=== PATIENT | male | born 1975 | race Caucasian/White ===

== ENCOUNTER 2022-04-05 14:41 | Inpatient (IN) | payer OTHER, SELFPAY ==
[2022-04-05] VITALS (8 sets, daily range): BP systolic 112–128; BP diastolic 71–82; PULSE 90–119; RESP 16–20; TEMP 36.6–38.1; O2SAT 95–100; BMI 26.6
--- NOTE | 2022-04-05 15:00 | DI.CT_ITS ---
Exam(s) CT ABDOMEN PELVIS W EXAM: CT ABDOMEN PELVIS W CLINICAL HISTORY: RLQ abd Pain, Fever, RUQ abd pain, TECHNIQUE: Imaging Protocol: Axial computed tomography images with coronal and sagittal reformatted images were created and reviewed CONTRAST MATERIAL: Intravenous: Omnipaque 350 Contrast volume:100 mL Oral: No COMPARISON: No exams were available for comparison FINDINGS: ABDOMEN: Lung Bases: Normal where visualized. Liver: Normal density. No measurable mass. Portal, Superior Mesenteric, and Splenic Veins: Unremarkable. Gallbladder and Biliary Tract: No radiodense calculus or dilation. Pancreas: Normal density, no abnormal calcifications or inflammatory process. Spleen: Normal. Adrenals: No masses seen. Kidneys: Normal size, contour and axis. No radiodense stones or obstructive uropathy. No masses seen. Abdominal Aorta: Abdominal portion non-dilated. Bowel: No evidence of obstruction. The appendix is distended measuring 1.5 cm in diameter. Appendic oliths are present. Judy appendiceal inflammatory changes are present in addition to enhancement of the wall. The findings are consistent with an acute appendicitis. No abscess or free air is seen. Peritoneal Cavity: There is a trace amount of fluid in the right cul-de-sac. No free air. Lymph Nodes: Within normal limits. Bones: Within normal limits for the patient's age. Soft Tissues: There is a fat containing left inguinal hernia. PELVIS: Bladder: Symmetric distention, no gross wall thickening. Reproductive Organs: Unremarkable as visualized. Lymph Nodes: Within normal limits. Bones: Within normal limits for the patient's age. IMPRESSION: 1. Acute appendicitis with appendicoliths. No abscess or free air. 2. Findings were discussed with Nicolás Guy at 4:30 p.m. on 04/05/2022. RADIATION DOSE DELIVERED: 874.73mGy.cm Total DLP DATA REPOSITORY: All CT scans at this facility are submitted to the National Radiology Data Registry (NRDR) Dose Index Registry (DIR) with the [employer] (A[employer]). RADIATION OPTIMIZATION: All CT scans at this facility use at least one of these dose optimization te chniques: automated exposure control; mA and/or kV adjustment per patient size (includes targeted exa ms where dose is matched to clinical indication); or iterative reconstruction.
[2022-04-05] MEDS: Normal Saline 1,000 ML 1000 ML IV (15:15)
--- NOTE | 2022-04-05 15:18 | ED.GENADUL_ITS ---
Discharge Plan Disposition Patient Disposition: Admit to [facility] Condition: Stable Discharge Details Clinical Impression: Appendicitis Primary Care Provider: None,None ED Provider: Nicolás Guy Home Meds and New Rx's Prescriptions: No Action calcium carbonate [Tums 500] 500 mg calcium (1,250 mg) Tablet,Chewable 500 mg PO PRN PRN loratadine [Claritin] 10 mg Tablet 10 mg PO PRN PRN Medical Decision Making <Arlin Mckee NP - Last Filed: 04/05/22 15:48> 46-year-old male presents to the ER accompanied by female caregiver with a chief complaint of right lower quadrant abdominal pain since yesterday. He also endorses fever of 100 this morning nausea vomiting no diarrhea. He reports that the pain does radiate to his right flank and now has settled in the right lower quadrant. Work-up CBC CMP urinalysis, lower suspicion for possible appendicitis. Liter normal saline ordered Zofran and morphine. Reviewed diagnosis includes but not limited to cholecystitis, gastroenteritis, kidney stone, small bowel obstruction. Care is to be handed off to oncoming provider SAM Reeves pending remaind er of labs and CT pelvis. I did discuss patient details with him. At the time of this dictation patient is hemodynamically stable. CBC does show leukocytosis white blood cell count 19.6, left shift absolute neutrophils 16.02. <SAM Pham - Last Filed: 04/05/22 17:08> 46-year-old male presents to the ER accompanied by female caregiver with a chief complaint of right lower quadrant abdominal pain since yesterday. He also endorses fever of 100 this morning nausea vomiting no diarrhea. He reports that the pain does radiate to his right flank and now has settled in the right lower quadrant. Work-up CBC CMP urinalysis, lower suspicion for possible appendicitis. Liter normal saline ordered Zofran and morphine. Reviewed diagnosis includes but not limited to cholecystitis, gastroenteritis, kidney stone, small bowel obstruction. Care is to be handed off to oncoming provider SAM Reeves pending remainder of labs and CT pelvis. I did discuss patient details with him. At the time of this dictation patient is hemodynamically stable. CBC does show leukocytosis white blood cell count 19.6, left shift absolute neutrophils 16.02. 1530: Nicolás Guy PA-C I assumed care of this 46-year-old gentleman from my colleague LEGAL BILLING SPECIALIST Rylee, please see her initial HPI and examination. CT imaging reveals acute appendicitis, no abscess or free air. Discussed CT findings with patient and significant other. Will obtain COVID swab, provide IV Zosyn, morphine, and placed a call to our surgical team. Case was discussed with surgery, Dr. Murcia, at approximately 1635. I received a call back at approximately [address] Howell, surgery, who came environmental inspector at 1700. He plans to bring the patient to the OR tonight between 1800- 1830, request that the OR team be called in. This documentation was generated using [employer] system, please disregard any oddities of phrase or misspellings. Imaging Data Radiologic Study: Attestation: I personally reviewed and interpreted this imaging study as follows: Imaging: CT Scan Radiologist's impression: Exam(s) CT ABDOMEN PELVIS W EXAM: CT ABDOMEN PELVIS W CLINICAL HISTORY: RLQ abd Pain, Fever, RUQ abd pain, TECHNIQUE: Imaging Protocol: Axial computed tomography images with coronal and sagittal reformatted images were created and reviewed CONTRAST MATERIAL: Intravenous: Omnipaque 350 Contrast volume:100 mL Oral: No COMPARISON: No exams were available for comparison FINDINGS: ABDOMEN: Lung Bases: Normal where visualized. Liver: Normal density. No measurable mass. Portal, Superior Mesenteric, and Splenic Veins: Unremarkable. Gallbladder and Biliary Tract: No radiodense calculus or dilation. Pancreas: Normal density, no abnormal calcifications or inflammatory process. Spleen: Normal. Adrenals: No masses seen. Kidneys: Normal size, contour and axis. No radiodense stones or obstructive uropathy. No masses seen. Abdominal Aorta: Abdominal portion non-dilated. Bowel: No evidence of obstruction. The appendix is distended measuring 1.5 cm in diameter. Appendicoliths are present. Judy appendiceal inflammatory changes are present in addition to enhancement of the wall. The findings are consistent with an acute appendicitis. No abscess or free air is seen. Peritoneal Cavity: There is a trace amount of fluid in the right cul-de-sac. No free air. Lymph Nodes: Within normal limits. Bones: Within normal limits for the patient's age. Soft Tissues: There is a fat containing left inguinal hernia. PELVIS: Bladder: Symmetric distention, no gross wall thickening. Reproductive Organs: Unremarkable as visualized. Lymph Nodes: Within normal limits. Bones: Within normal limits for the patient's age. IMPRESSION: 1. Acute appendicitis with appendicoliths. No abscess or free air. 2. Findings were discussed with Nicolás Guy at 4:30 p.m. on 04/05/2022. Lab Data Lab results reviewed: Yes I reviewed the patient's lab results. Labs: Laboratory Tests Range/Units 04/05/22 04/05/22 04/05/22 15:00 15:00 16:07 WBC (4.4-10.8) 10^3/uL 19.26 H RBC (4.36-5.78) 10^6/uL 5.82 H Hgb (13.5-17.5) g/dL 16.0 Hct (40.0-50.0) % 48.0 MCV (80-95) fL 83 MCH (27.0-33.0) pg 27.5 MCHC (32.0-36.0) % 33.3 RDW (11.8-14.1) % 11.9 Plt Count (130-400) 10^3/uL 200 MPV (8.0-11.0) fL 11.0 Immature Gran % 0.4 Neutrophils % 83.2 Lymphocytes % 8.9 Monocytes % 7.1 Eosinophils % 0.1 Basophils % 0.3 Nucleated RBC % (0.0-0.3) % 0.0 Absolute Neutrophils (1.2-6.7) 10^3/uL 16.02 H Absolute Lymphocytes (1.2-3.4) 10^3/uL 1.71 Absolute Monocytes (0.1-0.8) 10^3/uL 1.37 H Absolute Eosinophils (0.0-0.7) 10^3/uL 0.02 Absolute Basophils (0.0-0.2) 10^3/uL 0.06 Sodium (136-145) mmol/L 136 Potassium (3.5-5.1) mmol/L 3.5 Chloride (98-107) mmol/L 102 Carbon Dioxide (21.0-32.0) mmol/L 24.1 Anion Gap (3-11) mmol/L 9.9 BUN (7-18) mg/dL 13 Creatinine (0.70-1.30) mg/dL 1.3 Est GFR (CKD-EPI 2020) (mL/min/1.73m2) 69.47 Glucose (74-106) mg/dL 129 H Calcium (8.5-10.1) mg/dL 9.1 Magnesium (1.8-2.4) mg/dL 1.9 Total Bilirubin (0.2-1.0) mg/dL 1.6 H AST (15-37) U/L 18 ALT (16-63) U/L 32 Alkaline Phosphatase (46-116) U/L 79 Total Protein (6.4-8.2) g/dL 8.2 Albumin (3.4-5.0) g/dL 4.2 Lipase (73-393) U/L 73 Urine Color (Yellow) Yellow Urine Clarity (Clear) Clear Urine pH (5-8) 7.0 Ur Specific [place] (1.005-1.025) 1.010 Urine Protein (Negative) mg/dL Negative Urine Ketones (Negative) mg/dL Negative Urine Blood (Negative) Trace-intact H Urine Nitrite (Negative) Negative Urine Bilirubin (Negative) Negative Urine Urobilinogen (Up TO 0.2) EU/dL 0.2 Ur Leukocyte Esterase (Negative) Negative Urine RBC (0-2) HPF 0-2 Urine WBC (0-5) HPF 0-2 Ur Epithelial Cells (Negative) HPF Few Urine Crystals (Negative) HPF Negative Urine Bacteria (Negative) HPF Negative Urine Casts (Negative) LPF Negative Urine Mucus (Negative) Negative Ur Culture Indicated? No Urine Glucose (Negative) mg/dL Negative HPI <Arlin Mckee NP - Last Filed: 04/05/22 15:48> General Mode of arrival: ambulatory . Date/Time Provider Initiated Documentation: 04/05/22 14:54 . Limitations to Documentation: no limitations . Information obtained by: patient, family, RN notes reviewed and old records reviewed . HPI Narrative: 46-year-old male presents to the ER accompanied by female caregiver with a chief complaint of right lower quadrant abdominal pain since yesterday. He also endorses fever of 100 this morning nausea vomiting no diarrhea. He reports that the pain does radiate to his right flank and now has settled in the right lower quadrant. He is alert and oriented no significant past surgical history or medical history. He has no allergies to medications. He did not take any medication prior to arrival. He has been taking Advil as needed for the pain. He denies smoking denies any illicit drugs or alcohol. Related Data Home Medications Medication Instructions Recorded Confirmed calcium carbonate 500 mg calcium 500 mg PO PRN PRN 04/05/22 04/05/22 (1,250 mg) chewable tablet loratadine 10 mg tablet (Claritin) 10 mg PO PRN PRN 04/05/22 04/05/22 Allergies Allergy/AdvReac Type Severity Reaction Status Date / Time No Known Drug Allergies Allergy Unverified 04/05/22 14:50 General Stated Complaint: Abd Prob CELIA: 3 Review of Systems <Arlin Mckee NP - Last Filed: 04/05/22 15:48> All systems reviewed & are unremarkable except as noted in HPI and below Constitutional Constitutional: Reports as per HPI and Reports fever(s) Cardiovascular Cardiovascular: Denies dyspnea Respiratory Respiratory: Denies dyspnea Gastrointestinal Gastrointestinal: Reports as per HPI, Reports abdominal pain, Denies diarrhea, Reports nausea and Reports vomiting PFSH <Arlin Mckee NP - Last Filed: 04/05/22 15:48> All Active Problems (Updated 04/05/22 @ 16:37 by SAM Pham) Appendicitis (Acute) Social History Smoking/Tobacco Use Status: Never Smoking risk assessment performed?: Yes Drug use: Occasionally Substance use type: marijuana Do you feel safe at home: Yes Exam <Arlin Mckee NP - Last Filed: 04/05/22 15:48> Narrative Exam Narrative: Constitutional: Alert and oriented x3. Appears stated age. Normal body habitus. Head: Normocephalic, no trauma. Eyes: Pupils PERRL, Red reflex noted, EOM's intact. Eyelids symmetrical without lesions, discharge, or swelling. ENT: Bilateral TM's WNL, External ear normal to inspection, no mastoid TTP, swelling, or erythema, Nasal turbinates WNL, no nasal discharge. Normal dentition, Posterior pharynx WNL, no exudate. Chest: RRR, Normal S1, S2, distal pulses intact. Resp: Lungs clear to auscultation bilaterally, no wheezes, rales, or rhonchi. Abdomen: Soft, non-distended, Hypoactive bowel sounds all 4 quads. Positive, moderate tenderness with palpation right upper quadrant and right lower quadrant. Increased pain with movement.No CVA tenderness. Musculoskeletal: Normal gait, 5/5 strength to all four extremities. Skin: No suspicious rashes or lesions. Capillary refill less than 2 sec. Neurologic: Cranial nerves II-XII intact. Alert and oriented x 3. Motor: No deficits noted. Sensory: Intact bilaterally all 4 extremities. Hematologic/Lymphatic: No ecchymosis, no lymphadenopathy. Course <Arlin Mckee NP - Last Filed: 04/05/22 15:48> Vital Signs Vital signs: Vital Signs Temperature 37.0 C 04/05/22 14:47 Pulse 119 H 04/05/22 14:47 Respiratory Rate 16 04/05/22 14:47 Blood Pressure 117/82 04/05/22 14:47 Pulse Oximetry 97 04/05/22 14:47 Temperature 37.0 C 04/05/22 14:47 Temperature Source Temporal Artery Scan 04/05/22 14:47 Pulse 119 H 04/05/22 14:47 Respiratory Rate 16 04/05/22 14:47 Respiratory Effort 04/05/22 15:09 Blood Pressure 117/82 04/05/22 14:47 Pulse Oximetry 97 04/05/22 14:47 Oxygen Delivery Method Room Air 04/05/22 14:47 Oxygen Flow Rate 0 04/05/22 14:47 Pain Level 6 04/05/22 14:47 Sign Out <Arlin Mckee NP - Last Filed: 04/05/22 15:48> Sign Out Data: Sign Out Comment: 46-year-old male quadrant abdominal pain associated with fever nausea vomiting which began yesterday. Positive guarding. I do suspect appendicitis. CT abdomen pelvis labs are pending at this time. Zofran and norah santillan ordered. Last updated by Arlin Mckee NP at 04/05/22 15:35 PAWSS <Arlin Mckee NP - Last Filed: 04/05/22 15:48> Have you Been Recently Intoxicated or Drunk Within the Last 30 days?: Yes Have you Ever Experienced Previous Episodes of Alcohol Withdrawal?: No Have you ever Experienced Withdrawal Seizures?: No Have you ever Experienced Delirium Tremens(DT)s?: No Have you ever undergone Alcohol Rehabilitation Treatment (i.e, inpt ot outpatient treatment programs)?: No Have you ever Experienced Blackouts?: No Have you ever Combined Alcohol with other Downers within the last 90 days?: No Have you ever Combined Alcohol with any other Substance of Abuse during the last 90 days?: No Positive Blood Alcohol level on Presentation? [PCS.BAL]: No Evidence of Increased Autonomic Activity (i.e. HR>120, tremor, sweating, agitation, nausea)?: No Result: 1 <SAM Pham - Last Filed: 04/05/22 17:08> Result: 1
[2022-04-05 15:23] LABS: Abs Immature Grans 0.07 10^3/uL (0.0-0.06); Absolute Eosinophil Count 0.02 10^3/uL (0.0-0.7); Absolute Lymphocyte Count 1.71 10^3/uL (1.2-3.4); Absolute Monocyte Count 1.37 10^3/uL (0.1-0.8); Basophils % 0.3; Eosinophils % 0.1; Immature Grans % 0.4; Lymphocytes % 8.9; MCH 27.5 pg (27.0-33.0); MCHC 33.3 % (32.0-36.0); MCV 83 fL (80-95); Monocytes % 7.1; Neutrophils % 83.2; Platelet Count 200 10^3/uL (130-400); RBC 5.82 10^6/uL (4.36-5.78); RDW 11.9 % (11.8-14.1); RDW-SD 35.7 fL; WBC 19.26 10^3/uL (4.4-10.8)
[2022-04-05 15:24] LABS: Absolute Basophil Count 0.06 10^3/uL (0.0-0.2); Absolute Neutrophil Count 16.02 10^3/uL (1.2-6.7)
[2022-04-05] MEDS: Ondansetron 4 MG/2 ML VIAL IVP (15:31)
[2022-04-05] MEDS: MORPHine 4 MG/ML SYR IVP (15:31)
[2022-04-05 15:44] LABS: ALT 32 U/L (16-63); AST 18 U/L (15-37); Albumin 4.2 g/dL (3.4-5.0); Alkaline Phosphatase 79 U/L (46-116); Anion Gap 9.9 mmol/L (3-11); BUN 13 mg/dL (7-18); Bilirubin, Total 1.6 mg/dL (0.2-1.0); CO2 24.1 mmol/L (21.0-32.0); CREATININE 1.3 mg/dL (0.70-1.30); Calcium 9.1 mg/dL (8.5-10.1); Chloride 102 mmol/L (98-107); Estimated GFR 69.47 (mL/min/1.73m2); Glucose 129 mg/dL (74-106); Lipase 73 U/L (73-393); Magnesium 1.9 mg/dL (1.8-2.4); Potassium 3.5 mmol/L (3.5-5.1); Sodium 136 mmol/L (136-145); Total Protein 8.2 g/dL (6.4-8.2)
[2022-04-05] MEDS: Normal Saline - Diluent 50 ML VIAL IJ (16:00)
[2022-04-05] MEDS: Normal Saline Flush 10 ML SYR IVP (16:04)
[2022-04-05] MEDS: Omnipaque 350 MG/ML 100 ML BTL IJ (16:04)
[2022-04-05 16:21] LABS: Bilirubin Negative (Negative); Blood Trace-intact (Negative); Clarity Clear (Clear); Glucose Negative (Negative); Ketones Negative (Negative); Leukocyte Esterase Negative (Negative); Nitrite Negative (Negative); Urobilinogen 0.2 EU/dL (Up TO 0.2)
[2022-04-05 16:32] LABS: Bacteria Negative HPF (Negative); C & S Indicated? No; Casts Negative LPF (Negative); Crystals Negative HPF (Negative); Epithelial Cells Few HPF (Negative); Mucus Negative (Negative); RBC 0-2 HPF (0-2); WBC 0-2 HPF (0-5)
[2022-04-05] MEDS: PIPERACILLIN/TAZO 3.375 GM in Normal Saline 50 ML IVPB ×2 (16:43→22:48)
[2022-04-05 17:25] LABS: Source Nasal/Nares
[2022-04-05] MEDS: MORPHine 4 MG/ML SYR (17:32)
[2022-04-05] MEDS: Normal Saline 100 ML (17:33)
--- NOTE | 2022-04-05 17:45 | ANES.PREOP_ITS ---
General Info Date of Service Date Performed: 04/05/22 Height: 5 ft 9 in Weight: 81.647 kg Body Mass Index (BMI): 26.6 Surgical Procedure: Operation Date: 04/05/22 17:40 Proposed Procedure Side Surgeon p Appendectomy Laparoscopic Not Applicable Vincent Howell MD Meds Allergies and Home Medications Allergies Allergy/AdvReac Type Severity Reaction Status Date / Time No Known Drug Allergies Allergy Unverified 04/05/22 14:50 Home Medication Medication Instructions Recorded calcium carbonate 500 mg calcium 500 mg PO PRN PRN 04/05/22 (1,250 mg) chewable tablet loratadine 10 mg tablet (Claritin) 10 mg PO PRN PRN 04/05/22 Current Visit Medications: Current Medications Generic Name Dose Route Start Last Admin Trade Name Freq PRN Reason Stop Dose Admin IV Miscellaneous Supplies 1 each 04/05/22 15:00 Iv Access IV DIRECTED DOROTHY Iohexol 100 ml 04/05/22 16:15 04/05/22 16:04 Omnipaque 350 Mg/Ml 100 Ml Btl IJ 05/05/22 23:59 100 ml DIRECTED DOROTHY Administration Sodium Chloride 0 ml 04/05/22 14:55 04/05/22 16:04 Normal Saline Flush 10 Ml Syr IVP 10 ml PRN PRN Administration Sodium Chloride 50 ml 04/05/22 16:00 04/05/22 16:00 Normal Saline - Diluent 50 Ml Vial IJ 50 ml .FOR DI USE DOROTHY Administration PFSH Active Problems Active Problems: Problem Status Onset Code Appendicitis K37 Tobacco Smoking/Tobacco Use Status: Never Substance Use Substance use: Occasionally Substance use type: marijuana Vital Signs and Lab Results Vital Signs Most Recent Vital Signs in EMR: Most Recent Vital Signs Temp Pulse Resp BP Pulse Ox 37.0 C 119 H 16 117/82 97 04/05/22 14:47 04/05/22 14:47 04/05/22 14:47 04/05/22 14:47 04/05/22 14:47 Lab Results Result Diagrams: 04/05/22 15:00 04/05/22 15:00 Blood Type / Crossmatch: No Data to Display Complete Blood Count: White Blood Count 19.26 10^3/uL (4.4-10.8) H 04/05/22 15:00 Red Blood Count 5.82 10^6/uL (4.36-5.78) H 04/05/22 15:00 Hemoglobin 16.0 g/dL (13.5-17.5) 04/05/22 15:00 Hematocrit 48.0 % (40.0-50.0) 04/05/22 15:00 Platelet Count 200 10^3/uL (130-400) 04/05/22 15:00 Complete Metabolic Panel: Sodium 136 mmol/L (136-145) 04/05/22 15:00 Potassium 3.5 mmol/L (3.5-5.1) 04/05/22 15:00 Chloride 102 mmol/L (98-107) 04/05/22 15:00 Carbon Dioxide 24.1 mmol/L (21.0-32.0) 04/05/22 15:00 BUN 13 mg/dL (7-18) 04/05/22 15:00 Creatinine 1.3 mg/dL (0.70-1.30) 04/05/22 15:00 Est GFR (CKD-EPI 2020) 69.47 (mL/min/1.73m2) 04/05/22 15:00 Magnesium 1.9 mg/dL (1.8-2.4) 04/05/22 15:00 Calcium 9.1 mg/dL (8.5-10.1) 04/05/22 15:00 Albumin 4.2 g/dL (3.4-5.0) 04/05/22 15:00 Glucose 129 mg/dL (74-106) H 04/05/22 15:00 Liver Function Panel: Alanine Aminotransferase (ALT/SGPT) 32 U/L (16-63) 04/05/22 15: 00 Aspartate Amino Transf (AST/SGOT) 18 U/L (15-37) 04/05/22 15:00 Coagulation Panel: No Data to Display Cardiac Panel: No Data to Display Arterial Blood Gas: No Data to Display Venous Blood Gas: No Data to Display Pancreas Panel: Lipase 73 U/L (73-393) 04/05/22 15:00 Thyroid Panel: No Data to Display Infectious Disease: Coronavirus (COVID-19)(PCR) Pending 04/05/22 17:21 Coronavirus 2019 Source Nasal/Nares 04/05/22 17:21 Blood Cultures: No Data to Display Toxicology Panel: No Data to Display Anesthesia Assessment and Plan Anesthesia History Personal History: No History of Anesthesia Complications Family History: No Family History of Anesthesia Complications Exercise Tolerance Exercise Tolerance: Metabolic Equivalents>4 Cardiac & Pulmonary Exam Cardiac Exam: Normal S1/S2 Heart Sounds Pulmonary Exam: Clear Bilateral Breath Sounds Implantable Cardiac Device Does patient have a Pacemaker or an ICD?: No Airway Exam Known Difficult Airway: No Mallampati Class: 2 Mouth Opening: Narrow (< 3cm) Thyromental Distance: Less than 3 cm Neck Range of Motion: Full ROM Neck Circumference: Normal Teeth Condition: Normal Dentition ASA Classification ASA Score: ASA 2 Emergency Case?: Yes NPO Status NPO Status: NPO Clears >2 hours, Solids >8 hours Anesthesia Plan Resuscitation Status: Full Code Anesthesia Technique: General Anesthesia Airway Planned: Endotracheal Tube Monitors Used: Standard Monitors Preoperative Comments:: 46 yo male for appendectomy. Sig PMHx: denies major, never smoker, occ EtOH/cannabis. ibuprofen earlier today. Plan:
[2022-04-05 17:56] LABS: COVID-19 PCR Negative (Negative)
[2022-04-05] MEDS: Heparin 5,000 UNITS/ML VIAL 5000 UNITS SC (18:26)
--- NOTE | 2022-04-05 18:30 | HPE_ITS ---
Date of service: 04/05/22 Time of Service: 18:30 Assessment and Plan Assessment and plan (1) Appendicitis: Status: Acute Assessment and plan: 46-year-old man with likely appendicitis considering the history, abdominal exam and CT scan findings. He is hemodynamically stable and does have a leukocytosis of 19. There is no radiographic evidence of perforation and clinically he does not appear to have perforation. I recommend prompt laparoscopic appendectomy. History of Present Illness History of Present Illness Chief Complaint: Abdominal pain Narrative: 46-year-old man was in his usual state of health until last night when he developed abdominal pain around his bellybutton which then slowly settled into the right lower quadrant of his abdomen. He has never had pain like this before. His said he has not been feeling well for couple of weeks but he thinks that he was just under the weather. He has never had surgery before. He is not have any medical problems. He is healthy and active. 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 PFSH All Active Problems (Updated 04/05/22 @ 16:37 by SAM Pham) Appendicitis (Acute) Social History Smoking/Tobacco Use Status: Never Smoking risk assessment performed?: Yes Drug use: Occasionally Substance use type: marijuana Do you feel safe at home: Yes Meds Allergies and Home Medications Allergies Allergy/AdvReac Type Severity Reaction Status Date / Time No Known Drug Allergies Allergy Unverified 04/05/22 14:50 Home Medications Medication Instructions Recorded Confirmed Type calcium carbonate 500 mg calcium 500 mg PO PRN PRN 04/05/22 04/05/22 History (1,250 mg) chewable tablet loratadine 10 mg tablet (Claritin) 10 mg PO PRN PRN 04/05/22 04/05/22 History Exam Narrative Exam Narrative: General: Nontoxic, comfortable and interactive Neuro: Alert and oriented x3 Psych: Appropriate mood and affect, good insight and understanding into his condition Abdomen: Soft, mild distention, no tenderness in the upper quadrants. The left lower quadrant is not tender but palpation causes tender in the right lower quadrant (Rovsing sign) and he does have focal ([place] point ) peritonitis (tap tenderness). Results Labs Result diagrams: 04/05/22 15:00 04/05/22 15:00 Labs: Laboratory Results - last 24 hr 04/05/22 04/05/22 04/05/22 15:00 15:00 16:07 WBC 19.26 H RBC 5.82 H Hgb 16.0 Hct 48.0 MCV 83 MCH 27.5 MCHC 33.3 RDW 11.9 Plt Count 200 MPV 11.0 Immature Gran % 0.4 Neutrophils % 83.2 Lymphocytes % 8.9 Monocytes % 7.1 Eosinophils % 0.1 Basophils % 0.3 Nucleated RBC % 0.0 Absolute Neutrophils 16.02 H Absolute Lymphocytes 1.71 Absolute Monocytes 1.37 H Absolute Eosinophils 0.02 Absolute Basophils 0.06 Sodium 136 Potassium 3.5 Chloride 102 Carbon Dioxide 24.1 Anion Gap 9.9 BUN 13 Creatinine 1.3 Est GFR (CKD-EPI 2020) 69.47 Glucose 129 H Calcium 9.1 Magnesium 1.9 Total Bilirubin 1.6 H AST 18 ALT 32 Alkaline Phosphatase 79 Total Protein 8.2 Albumin 4.2 Lipase 73 Urine Color Yellow Urine Clarity Clear Urine pH 7.0 Ur Specific [place] 1.010 Urine Protein Negative Urine Ketones Negative Urine Blood Trace-intact H Urine Nitrite Negative Urine Bilirubin Negative Urine Urobilinogen 0.2 Ur Leukocyte Esterase Negative Urine RBC 0-2 Urine WBC 0-2 Ur Epithelial Cells Few Urine Crystals Negative Urine Bacteria Negative Urine Casts Negative Urine Mucus Negative Ur Culture Indicated? No Urine Glucose Negative COVID-19 Source SARS-CoV-2 (PCR) 04/05/22 17:21 WBC RBC Hgb Hct MCV MCH MCHC RDW Plt Count MPV Immature Gran % Neutrophils % Lymphocytes % Monocytes % Eosinophils % Basophils % Nucleated RBC % Absolute Neutrophils Absolute Lymphocytes Absolute Monocytes Absolute Eosinophils Absolute Basophils Sodium Potassium Chloride Carbon Dioxide Anion Gap BUN Creatinine Est GFR (CKD-EPI 2020) Glucose Calcium Magnesium Total Bilirubin AST ALT Alkaline Phosphatase Total Protein Albumin Lipase Urine Color Urine Clarity Urine pH Ur Specific [place] Urine Protein Urine Ketones Urine Blood Urine Nitrite Urine Bilirubin Urine Urobilinogen Ur Leukocyte Esterase Urine RBC Urine WBC Ur Epithelial Cells Urine Crystals Urine Bacteria Urine Casts Urine Mucus Ur Culture Indicated? Urine Glucose COVID-19 Source Nasal/Nares SARS-CoV-2 (PCR) Negative Last Vital Signs Temp 100.6 F H 04/05/22 18:07 Pulse 107 H 04/05/22 18:07 Resp 19 04/05/22 18:07 BP 112/74 04/05/22 18:07 Pulse Ox 98 04/05/22 18:07 PAWSS Have you Been Recently Intoxicated or Drunk Within the Last 30 days?: Yes Have you Ever Experienced Previous Episodes of Alcohol Withdrawal?: No Have you ever Experienced Withdrawal Seizures?: No Have you ever Experienced Delirium Tremens(DT)s?: No Have you ever undergone Alcohol Rehabilitation Treatment (i.e, inpt ot outpatient treatment programs)?: No Have you ever Experienced Blackouts?: No Have you ever Combined Alcohol with other Downers within the last 90 days?: No Have you ever Combined Alcohol with any other Substance of Abuse during the last 90 days?: No Positive Blood Alcohol level on Presentation? [PCS.BAL]: No Evidence of Increased Autonomic Activity (i.e. HR>120, tremor, sweating, agitation, nausea)?: No Result: 1 Time Spent Time spent with Patient: <40 minutes Time was spent: obtaining and/or reviewing separately otained jonathanory referri ng, communicating with other health long term acute care registered nurse and indepentently interpreting results
[2022-04-05] MEDS: Lactated Ringers 1,000 ML 30 ML IV (18:46)
[2022-04-05] MEDS: Bupivacaine 0.25% Pres-Free 30 ML VIAL (19:25)
--- NOTE | 2022-04-05 19:30 | APP_PTH ---
PATIENT: Wiliam Zaman LOC: U#:[id number] AGE/SX: 46/M ROOM: 225 RE04/05/[address]: Vincent Howell : 1975 BED: A DIS: 04/09/2022 SPEC #: [id number] RECD: 04/08/22 12:50 STATUS: CHAIM REAlex #: [id number] LOVE: 04/05/22 19:[address]: Vincent Howell DEPT: Surgical Specimen RECD BY: Sarai Felder ENTERED: 04/08/22 12:51 SP TYPE: Appendix OTHR DR: None Tissues: 1 - APPENDIX NOT INCIDENTAL Procedures: GROSS AND MICRO LEVEL 3 Comments: [id number]
--- NOTE | 2022-04-05 19:43 | W.PM.OP ---
Date of service: 04/05/22 Time of Service: 19:44 Operative Note Operative Note Refer to Anesthesia Record Procedure Description: Procedures performed: 1. Laparoscopic appendectomy ?Preoperative diagnosis: Acute appendicitis ?Postop diagnosis: Acute perforated appendicitis ?Surgeon: Krzysztof Howell Journeyman Pipe Fitter: Keny ?Anesthesia: General ?Anesthesia provider: Kwasi ?Indication for procedure: 46 yo man with acute onset RLQ pain and CT findings consistent with acute, non-perforated appendicitis. ?Findings:? An acutely inflamed appendix was encountered. Appendicolith eroded through near base of appendix with grossly visible perforation but no suppurative or purulent findings. No abscess and no wide-spread contamination. ?Estimated blood loss: Scant/Minimal ?Complications: No complications ?Drains: 15 Fr ?Procedure details: The patient gave written consent, was in agreement with the risks, indications and benefits of the procedure and was taken to the operating room and laid supine with arms outstretched.? Anesthesia was administered which was tolerated very well.? We tucked the left arm. Antibiotics and DVT prophylaxis had been given. We performed a timeout and when we were all in agreement I began the case. We prepped and draped the abdomen in sterile fashion.? I used a Veress needle at the umbilicus and insufflated without any difficulty.? A 5 mm port was placed thru the umbilicus without any difficulty. I had adequate exposure and visualization of the RLQ with the above-mentioned findings.? I placed two other trocars under direct visualization. There was gross perforation with scant bowel contents in the gutter and visible appendicolith eroding through near the base. There was no pus or purulent fluid visible. Using the Ligasure I divided the mesoappendix.? Next I divided the appendix base with the stapler ensure a healthy cuff of cecum was also taken as part of the staple line? I removed the appendix(and appendicolith) from the abdominal cavity and passed the specimen off the back table.? I rechecked for hemostasis and it was excellent.? I irrigated copiously and washout the RLQ and pelvis. I left a 15 portuguese drain in the RLQ gutter next to the staple line and where the contamination had been. The 12 mm port site was closed through the fascia with 0-Vicryl.? The remaining ports were removed.? Skin was closed with absorbable sutures and dressings were placed. The patient tolerated the procedure well and was extubated and taken to the PACU in HD stable condition.?
--- NOTE | 2022-04-05 20:31 | W.ANESPOSTOP ---
Postoperative Evaluation Date, Time and Location Date Performed: 04/05/22 Time Performed: 20:31 Patient Location: PACU Vital Signs Most Recent Imported Vital Signs: Most Recent Vital Signs Temp Pulse Resp BP Pulse Ox 36.8 C 92 H 16 128/80 98 04/05/22 20:19 04/05/22 20:19 04/05/22 20:19 04/05/22 20:19 04/05/22 20:19 Pain Score Most Recent Pain Score: Most Recent Pain Score Pain Level 0 04/05/22 20:19 Assessment Mental Status: Awake (Alert & Oriented to Patient Baseline) Airway and Respiratory Function: Patent airway with normal (patient baseline) respiratory exam Cardiovascular Function: Hemodynamically Stable Hydration Status: Adequately Hydrated Nausea & Vomiting: No Nausea or Vomiting Pain: Pain is tolerable per patient Peripheral Nerve Block: Patient did not receive a nerve block
[2022-04-05] MEDS: Lactated Ringers 1,000 ML 75 ML IV (22:20)
[2022-04-05] MEDS: Acetaminophen 500 MG TAB 1000 MG PO (22:46)
[2022-04-05] MEDS: Enoxaparin 40 MG/0.4 ML SYR SC (22:49)
[2022-04-05] MEDS: Normal Saline 500 ML 30 ML IV (22:51)
[2022-04-06 00:27] VITALS: TEMP 37
[2022-04-06] MEDS: MORPHine 2 MG/ML SYR IVP ×7 (03:45→22:15)
[2022-04-06] MEDS: Acetaminophen 500 MG TAB 1000 MG PO ×4 (06:14→23:15)
[2022-04-06] MEDS: PIPERACILLIN/TAZO 3.375 GM in Normal Saline 50 ML IVPB ×4 (06:16→23:15)
[2022-04-06] MEDS: Ondansetron 4 MG/2 ML VIAL IVP (06:34)
[2022-04-06 07:16] LABS: Absolute Basophil Count 0.02 10^3/uL (0.0-0.2); Absolute Lymphocyte Count 0.55 10^3/uL (1.2-3.4); Absolute Neutrophil Count 14.61 10^3/uL (1.2-6.7); Basophils % 0.1; Immature Grans % 0.6; Lymphocytes % 3.4; MCH 27.6 pg (27.0-33.0); MCHC 32.6 % (32.0-36.0); MCV 85 fL (80-95); MPV 11.1 fL (8.0-11.0); Neutrophils % 90.9; Platelet Count 184 10^3/uL (130-400); RBC 5.08 10^6/uL (4.36-5.78); RDW-SD 37.1 fL; WBC 16.07 10^3/uL (4.4-10.8)
[2022-04-06 07:40] VITALS: BP 107/69; PULSE 86; RESP 16; TEMP 37.3; O2SAT 95
[2022-04-06] MEDS: Normal Saline Flush 10 ML SYR IVP ×6 (08:16→23:16)
--- NOTE | 2022-04-06 08:54 | PDOC.CMIN ---
- If Service Date Differs Date of service: 04/06/22 Time of Service: 08:54 Care Management Initial Assess REASON FOR HOSPITALIZATION:: Acute appendicitis. PAST MEDICAL HISTORY/PAST SURGICAL HISTORY:: All Active Problems: Appendicitis (Acute). No Medical/Surgical History noted in chart. PREVIOUS FUNCTIONAL STATUS/SOCIAL/FAMILY SUPPORTS:: Wilima lives in [facility] with his Melissa and their teenage daughter. 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 In his free time, he enjoys going for hikes with his dog and kayaking. He drives and is independent at baseline. CURRENT FUNCTIONAL STATUS:: Wiliam is sitting in a chair when CM comes to meet with him. His mom is present in the room. He shares he and his family moved to [facility] in October of 2021 and they are still settling into their new house. He is in the process of establishing care with a PCP at [facility] but states he has had difficulty obtaining his medical records from his previous provider who retired and closed his practice. Wiliam states he doesn't have much of a medical history as he is pretty healthy. ADVANCE DIRECTIVES:: None on file. Has patient been provided with info about the portal/API?: Yes Did the patient sign up for the portal?: Yes CODE STATUS:: Full Code INSURANCE COVERAGE / FINANCIAL ISSUES:: [employer]. CURRENT HOME/COMMUNITY SERVICES/EQUIPMENT:: None. Wiliam is independent at baseline. PRIMARY CARE PHYSICIAN:: In the process of establishing care with [facility]. POTENTIAL DISCHARGE NEEDS:: Follow up appointments with PCP and surgeon. PATIENT/FAMILY EDUCATION NEEDS:: Review of discharge instructions and discuss Ask Me Three. ANTICIPATED BARRIERS TO DISCHARGE:: None identified at this time. TRANSPORTATION:: Via private vehicle with his , Melissa. PLAN:: Wiliam will discharge home with no services when medically cleared by provider. He will follow up with his PCP, surgeon and plan of care as directed. He will be transported home by his via private vehicle when ready. CM will continue to follow.
--- NOTE | 2022-04-06 09:25 | PGE_ITS ---
Date of Service Date of service: 04/06/22 Time of Service: 08:45 Assessment and Plan Assessment and plan (1) Perforated appendix: Status: Acute Assessment and plan: 46-year-old man postop day 1 from laparoscopic appendectomy. Drain left in place because gross perforation was encountered. He is hemodynamically stable. Leukocytosis is somewhat down however remains elevated. Discharge criteria being normal white count and no fever greater than 24 hours. Overall plan: #Regular diet #DVT prophylaxis #IV antibiotics #Out of bed and ambulate #Drain teaching #Possible discharge tomorrow if meets criteria #Analgesia as needed Subjective Subjective Interval history since last seen: No issues overnight. No fevers. Tolerating clear liquids. Adequate urine output. No nausea or vomiting. Pain issues where the drain site is. Exam Narrative Exam Narrative: General: Nontoxic, comfortable and interactive Neuro: Alert and oriented x3 Psych: Appropriate mood and affect, good insight and understanding into his condition. Abdomen: Soft, nondistended, grossly nontender except around incisions which is expected. Drain output: serosanguineous. Objective Last Vital Signs Temp 99.1 F 04/06/22 07:40 Pulse 86 04/06/22 07:40 Resp 16 04/06/22 07:40 BP 107/69 04/06/22 07:40 Pulse Ox 95 04/06/22 07:40 Laboratory Results - last 24 hr 04/05/22 04/05/22 04/05/22 15:00 15:00 16:07 WBC 19.26 H RBC 5.82 H Hgb 16.0 Hct 48.0 MCV 83 MCH 27.5 MCHC 33.3 RDW 11.9 Plt Count 200 MPV 11.0 Immature Gran % 0.4 Neutrophils % 83.2 Lymphocytes % 8.9 Monocytes % 7.1 Eosinophils % 0.1 Basophils % 0.3 Nucleated RBC % 0.0 Absolute Neutrophils 16.02 H Absolute Lymphocytes 1.71 Absolute Monocytes 1.37 H Absolute Eosinophils 0.02 Absolute Basophils 0.06 Sodium 136 Potassium 3.5 Chloride 102 Carbon Dioxide 24.1 Anion Gap 9.9 BUN 13 Creatinine 1.3 Est GFR (CKD-EPI 2020) 69.47 Glucose 129 H Calcium 9.1 Magnesium 1.9 Total Bilirubin 1.6 H AST 18 ALT 32 Alkaline Phosphatase 79 Total Protein 8.2 Albumin 4.2 Lipase 73 Urine Color Yellow Urine Clarity Clear Urine pH 7.0 Ur Specific [place] 1.010 Urine Protein Negative Urine Ketones Negative Urine Blood Trace-intact H Urine Nitrite Negative Urine Bilirubin Negative Urine Urobilinogen 0.2 Ur Leukocyte Esterase Negative Urine RBC 0-2 Urine WBC 0-2 Ur Epithelial Cells Few Urine Crystals Negative Urine Bacteria Negative Urine Casts Negative Urine Mucus Negative Ur Culture Indicated? No Urine Glucose Negative COVID-19 Source SARS-CoV-2 (PCR) 04/05/22 04/06/22 17:21 06:45 WBC 16.07 H RBC 5.08 Hgb 14.0 D Hct 43.0 MCV 85 MCH 27.6 MCHC 32.6 RDW 12.0 Plt Count 184 MPV 11.1 H Immature Gran % 0.6 Neutrophils % 90.9 Lymphocytes % 3.4 Monocytes % 5.0 Eosinophils % 0.0 Basophils % 0.1 Nucleated RBC % 0.0 Absolute Neutrophils 14.61 H Absolute Lymphocytes 0.55 L Absolute Monocytes 0.80 Absolute Eosinophils 0.00 Absolute Basophils 0.02 Sodium Potassium Chloride Carbon Dioxide Anion Gap BUN Creatinine Est GFR (CKD-EPI 2020) Glucose Calcium Magnesium Total Bilirubin AST ALT Alkaline Phosphatase Total Protein Albumin Lipase Urine Color Urine Clarity Urine pH Ur Specific [place] Urine Protein Urine Ketones Urine Blood Urine Nitrite Urine Bilirubin Urine Urobilinogen Ur Leukocyte Esterase Urine RBC Urine WBC Ur Epithelial Cells Urine Crystals Urine Bacteria Urine Casts Urine Mucus Ur Culture Indicated? Urine Glucose COVID-19 Source Nasal/Nares SARS-CoV-2 (PCR) Negative PAWSS Have you Been Recently Intoxicated or Drunk Within the Last 30 days?: Yes Have you Ever Experienced Previous Episodes of Alcohol Withdrawal?: No Have you ever Experienced Withdrawal Seizures?: No Have you ever Experienced Delirium Tremens(DT)s?: No Have you ever undergone Alcohol Rehabilitation Treatment (i.e, inpt ot outpatient treatment programs)?: No Have you ever Experienced Blackouts?: No Have you ever Combined Alcohol with other Downers within the last 90 days?: No Have you ever Combined Alcohol with any other Substance of Abuse during the last 90 days?: No Positive Blood Alcohol level on Presentation? [PCS.BAL]: No Evidence of Increased Autonomic Activity (i.e. HR>120, tremor, sweating, agitation, nausea)?: No Result: 1 Time Spent with Patient Time Spent with Patient: <25 minutes Time was spent: indepentently interpreting results and counseling the patient
[2022-04-06 15:05] VITALS: BP 104/70; PULSE 90; RESP 17; TEMP 37.1; O2SAT 96
[2022-04-06] MEDS: Normal Saline 500 ML 30 ML IV (17:28)
[2022-04-06] MEDS: Enoxaparin 40 MG/0.4 ML SYR SC (22:16)
[2022-04-06 22:35] VITALS: TEMP 37.1
[2022-04-06 23:13] VITALS: BP 106/68; PULSE 85; RESP 16; TEMP 36.8; O2SAT 96
[2022-04-07] VITALS (8 sets, daily range): BP systolic 120–152; BP diastolic 77–93; PULSE 86–107; RESP 16–20; TEMP 36.4–37.4; O2SAT 96–99
[2022-04-07] MEDS: Normal Saline Flush 10 ML SYR IVP ×5 (02:24→12:06)
[2022-04-07] MEDS: MORPHine 2 MG/ML SYR IVP ×4 (02:25→10:05)
[2022-04-07] MEDS: PIPERACILLIN/TAZO 3.375 GM in Normal Saline 50 ML IVPB ×4 (05:45→23:24)
[2022-04-07] MEDS: Acetaminophen 500 MG TAB 1000 MG PO (05:45)
[2022-04-07 05:52] LABS: Abs Immature Grans 0.04 10^3/uL (0.0-0.06); Absolute Basophil Count 0.02 10^3/uL (0.0-0.2); Absolute Eosinophil Count 0.05 10^3/uL (0.0-0.7); Absolute Lymphocyte Count 1.58 10^3/uL (1.2-3.4); Absolute Monocyte Count 1.07 10^3/uL (0.1-0.8); Basophils % 0.1; Eosinophils % 0.3; HCT 40.2 % (40.0-50.0); HGB 13.2 g/dL (13.5-17.5); Immature Grans % 0.3; Lymphocytes % 10.5; MCH 27.6 pg (27.0-33.0); MCHC 32.8 % (32.0-36.0); MCV 84 fL (80-95); MPV 11.4 fL (8.0-11.0); Monocytes % 7.1; Neutrophils % 81.7; Platelet Count 182 10^3/uL (130-400); RBC 4.79 10^6/uL (4.36-5.78); RDW 12.1 % (11.8-14.1); WBC 15.05 10^3/uL (4.4-10.8)
[2022-04-07] MEDS: Ondansetron 4 MG/2 ML VIAL IVP ×2 (07:54→12:06)
--- NOTE | 2022-04-07 10:21 | W.PM.PROGNOT ---
Date of Service Date of service: 04/07/22 Time of Service: 09:45 Assessment and Plan Assessment and plan (1) Perforated appendix: Status: Acute Assessment and plan: 46-year-old man postop day 2 from laparoscopic appendectomy and drain placement for perforated appendicitis. He is hemodynamically stable. His abdominal exam is not concerning. The nausea/vomiting is probably secondary to some degree of ileus in setting of perforated appendicitis. He continues to have a persistent, though down?trending, leukocytosis. He has not had fevers. Overall plan today: #Back down to n.p.o. with sips #IV fluid #Analgesia as needed #DVT prophylaxis #Continue IV antibiotics Discharge criteria is resolved leukocytosis, no fevers greater than 24 hours and tolerating p.o. hydration. Subjective Subjective Interval history since last seen: Has been having nausea overnight. Vomited once. Some pain on/off. Does report passing gas. Voiding adequately. Drain output scant. Exam Narrative Exam Narrative: Gen: Nontoxic, comfortable and interactive Neuro: Alert and oriented x3 Psych: Appropriate mood and affect, good insight and understanding. Abdomen: Soft, minimally distended, mild but expected tenderness. Drain: Mostly serous output. Scant volume. Objective Last Vital Signs Temp 99.3 F 04/07/22 07:20 Pulse 97 H 04/07/22 07:20 Resp 18 04/07/22 07:20 BP 136/77 04/07/22 07:20 Pulse Ox 96 04/07/22 07:20 Laboratory Results - last 24 hr 04/07/22 05:41 WBC 15.05 H RBC 4.79 Hgb 13.2 L Hct 40.2 MCV 84 MCH 27.6 MCHC 32.8 RDW 12.1 Plt Count 182 MPV 11.4 H Immature Gran % 0.3 Neutrophils % 81.7 Lymphocytes % 10.5 Monocytes % 7.1 Eosinophils % 0.3 Basophils % 0.1 Nucleated RBC % 0.0 Absolute Neutrophils 12.30 H Absolute Lymphocytes 1.58 Absolute Monocytes 1.07 H Absolute Eosinophils 0.05 Absolute Basophils 0.02 PAWSS Have you Been Recently Intoxicated or Drunk Within the Last 30 days?: Yes Have you Ever Experienced Previous Episodes of Alcohol Withdrawal?: No Have you ever Experienced Withdrawal Seizures?: No Have you ever Experienced Delirium Tremens(DT)s?: No Have you ever undergone Alcohol Rehabilitation Treatment (i.e, inpt ot outpatient treatment programs)?: No Have you ever Experienced Blackouts?: No Have you ever Combined Alcohol with other Downers within the last 90 days?: No Have you ever Combined Alcohol with any other Substance of Abuse during the last 90 days?: No Positive Blood Alcohol level on Presentation? [PCS.BAL]: No Evidence of Increased Autonomic Activity (i.e. HR>120, tremor, sweating, agitation, nausea)?: No Result: 1 Time Spent with Patient Time Spent with Patient: <25 minutes Time was spent: indepentently interpreting results, counseling the patient and care coordination
[2022-04-07] MEDS: Lactated Ringers 1,000 ML 1000 ML IV (11:50)
[2022-04-07] MEDS: Normal Saline 500 ML 100 ML IV (13:22)
[2022-04-07] MEDS: ACETAMINOPHEN 1,000 MG/100 ML BTL 400 MG IVPB ×2 (14:16→20:15)
[2022-04-07] MEDS: Lactated Ringers 1,000 ML 125 ML IV (14:16)
[2022-04-07] MEDS: Calcium Carbonate *TUMS* 500 MG CHEW 1000 MG PO (18:56)
[2022-04-07] MEDS: Simethicone 80 MG CHEW 160 MG PO (20:16)
[2022-04-07] MEDS: Enoxaparin 40 MG/0.4 ML SYR SC (23:20)
[2022-04-08] MEDS: Lactated Ringers 1,000 ML 125 ML IV (01:35)
[2022-04-08] MEDS: ACETAMINOPHEN 1,000 MG/100 ML BTL 400 MG IVPB ×4 (02:00→20:45)
[2022-04-08] MEDS: PIPERACILLIN/TAZO 3.375 GM in Normal Saline 50 ML IVPB ×3 (06:10→17:28)
[2022-04-08] MEDS: Ondansetron 4 MG/2 ML VIAL IVP (06:10)
[2022-04-08 06:25] LABS: Abs Immature Grans 0.03 10^3/uL (0.0-0.06); Absolute Basophil Count 0.03 10^3/uL (0.0-0.2); Absolute Eosinophil Count 0.17 10^3/uL (0.0-0.7); Absolute Lymphocyte Count 1.28 10^3/uL (1.2-3.4); Absolute Neutrophil Count 7.49 10^3/uL (1.2-6.7); Basophils % 0.3; Eosinophils % 1.7; HCT 40.8 % (40.0-50.0); HGB 13.6 g/dL (13.5-17.5); Immature Grans % 0.3; Lymphocytes % 12.9; MCH 27.6 pg (27.0-33.0); MCHC 33.3 % (32.0-36.0); MCV 83 fL (80-95); MPV 10.9 fL (8.0-11.0); Monocytes % 9.1; Neutrophils % 75.7; Platelet Count 215 10^3/uL (130-400); RBC 4.92 10^6/uL (4.36-5.78); RDW 12.3 % (11.8-14.1); RDW-SD 37.6 fL
[2022-04-08 06:46] LABS: Anion Gap 8.8 mmol/L (3-11); BUN 14 mg/dL (7-18); CO2 26.2 mmol/L (21.0-32.0); CREATININE 1.2 mg/dL (0.70-1.30); Calcium 8.8 mg/dL (8.5-10.1); Chloride 103 mmol/L (98-107); Estimated GFR 76.48 (mL/min/1.73m2); Glucose 103 mg/dL (74-106); Potassium 3.6 mmol/L (3.5-5.1); Sodium 138 mmol/L (136-145)
[2022-04-08] MEDS: Normal Saline Flush 10 ML SYR IVP ×2 (07:13→17:28)
[2022-04-08 07:32] VITALS: BP 125/79; PULSE 90; RESP 17; TEMP 37.2; O2SAT 98
--- NOTE | 2022-04-08 07:46 | W.PM.PROGNOT ---
Date of Service Date of service: 04/08/22 Time of Service: 12:00 Assessment and Plan Assessment and plan (1) Perforated appendix: Status: Acute Assessment and plan: 46-year-old man postop day 3 from laparoscopic appendectomy for perforated appendicitis. He is hemodynamically stable and overall doing well. Mild nausea probably secondary to meds and may be some degree of resolving ileus. Nonetheless he is having good bowel function. His leukocytosis has resolved and he has been afebrile greater than 48 hours. Plan: #Clear liquid diet #Hep-Lock all IV fluids #Continue IV antibiotics while still in the hospital?probable discharge home on Augmentin tomorrow #DVT prophylaxis #Non-? narcotic analgesia #Tums as needed Probable discharge home tomorrow. Drain can be pulled before discharge. Subjective Subjective Interval history since last seen: Feels much better today. Some mild nausea still but no vomiting since yesterday. He has been passing a lot of gas and having bowel movements. No fevers. He is ready to try clear liquids again. He is voiding adequately. Exam Narrative Exam Narrative: General: Nontoxic, comfortable and interactive Neuro: Alert and oriented x3 Psych: Appropriate mood and affect, good insight and understanding into condition Abdomen: Soft, nondistended, grossly nontender. Incisions are clean, dry and intact. The drain is intact. Scant output and it is mostly serous. Objective Last Vital Signs Temp 99.0 F 04/08/22 07:32 Pulse 90 04/08/22 07:32 Resp 17 04/08/22 07:32 BP 125/79 04/08/22 07:32 Pulse Ox 98 04/08/22 07:32 Laboratory Results - last 24 hr 04/08/22 04/08/22 06:12 06:12 WBC 9.90 RBC 4.92 Hgb 13.6 Hct 40.8 MCV 83 MCH 27.6 MCHC 33.3 RDW 12.3 Plt Count 215 MPV 10.9 Immature Gran % 0.3 Neutrophils % 75.7 Lymphocytes % 12.9 Monocytes % 9.1 Eosinophils % 1.7 Basophils % 0.3 Nucleated RBC % 0.0 Absolute Neutrophils 7.49 H Absolute Lymphocytes 1.28 Absolute Monocytes 0.90 H Absolute Eosinophils 0.17 Absolute Basophils 0.03 Sodium 138 Potassium 3.6 Chloride 103 Carbon Dioxide 26.2 Anion Gap 8.8 BUN 14 Creatinine 1.2 Est GFR (CKD-EPI 2020) 76.48 Glucose 103 Calcium 8.8 PAWSS Have you Been Recently Intoxicated or Drunk Within the Last 30 days?: Yes Have you Ever Experienced Previous Episodes of Alcohol Withdrawal?: No Have you ever Experienced Withdrawal Seizures?: No Have you ever Experienced Delirium Tremens(DT)s?: No Have you ever undergone Alcohol Rehabilitation Treatment (i.e, inpt ot outpatient treatment programs)?: No Have you ever Experienced Blackouts?: No Have you ever Combined Alcohol with other Downers within the last 90 days?: No Have you ever Combined Alcohol with any other Substance of Abuse during the last 90 days?: No Positive Blood Alcohol level on Presentation? [PCS.BAL]: No Evidence of Increased Autonomic Activity (i.e. HR>120, tremor, sweating, agitation, nausea)?: No Result: 1 Time Spent with Patient Time Spent with Patient: <25 minutes Time was spent: referring, communicating with other health social worker palliative care and counseling the patient
[2022-04-08] MEDS: Calcium Carbonate *TUMS* 500 MG CHEW 1000 MG PO ×2 (08:05→17:28)
--- NOTE | 2022-04-08 14:41 | PHA.REVIEW2 ---
Pharmacy Admission Review - Admission Clinical Review (Last Reviewed 04/05/22 @ 15:19 by Arlin Mckee NP) Perforated appendix (Acute) Appendicitis (Acute) No Known Drug Allergies Allergy (Unverified 04/05/22 14:50) Resuscitation Status Full Code Height 5 ft 9 in Weight 86 kg - Renal Dosing Renal Dosing: BUN 14 mg/dL (7-18) 04/08/22 06:12 Creatinine 1.2 mg/dL (0.70-1.30) 04/08/22 06:12 Medications needing adjustments: Reviewed (crcl =85, no adjustments needed) - Anticoagulation Anticoagulation: Hgb 13.6 g/dL (13.5-17.5) 04/08/22 06:12 Hct 40.8 % (40.0-50.0) 04/08/22 06:12 Plt Count 215 10^3/uL (130-400) 04/08/22 06:12 Creatinine 1.2 mg/dL (0.70-1.30) 04/08/22 06:12 DVT Prophylaxis: Reviewed Medications: Enoxaparin (enoxaparin 40 mg daily) Therapeutic Anticoagulation: N/A - Opiate Usage Evaluate Pain Scale/Pains Meds: Reviewed (had been receiving morphine 2 mg IV prn (last dose >24 hrs ago), now dc'd) Scheduled Bowel Reg ordered if on Opiates?: No (opiates dc'd ) - Relevant Labs Sodium 138 mmol/L (136-145) 04/08/22 06:12 Potassium 3.6 mmol/L (3.5-5.1) 04/08/22 06:12 Chloride 103 mmol/L (98-107) 04/08/22 06:12 Magnesium 1.9 mg/dL (1.8-2.4) 04/05/22 15:00 Electrolytes, C-Reactive P, ESR: Reviewed - DM Control DM Control: Glucose 103 mg/dL (74-106) 04/08/22 06:12 DM Control: N/A (no diabetes diagnosis in chart) - Cardiac Review BP, HR, EF%: Reviewed - Qtc Review QTc: N/A (no EKG to reference) - IV to PO Switch IV Medications: Reviewed (currently on IV abx, switch to PO augmentin upon discharge) - Home Meds Home Med List reviewed: Reviewed - Current meds Current Medication Order Review: Reviewed Antibiotic Activity - Pharmacy Antibiotic Review Pharmacy Antibiotic Activity: 48 hour review () - Antibiotic Information Antibiotic Review Info: zosyn 3.375 mg q6h for laparoscopic appendectomy (perforated appendix), WBC trending down. plan to switch to augmentin PO upon discharge (possibly tomorrow)
--- NOTE | 2022-04-08 14:59 | CMPROGNOTE_ITS ---
- If Service Date Differs Date of service: 04/08/22 Time of Service: 14:59 Care Management Progress Note S/O: Wiliam was sitting up in his chair when CM met with him. He stated that he is doing well, and having minimal pain today. He reported that per MD, he will likely return home tomorrow if he is able to tolerate clear liquids. His mother was in the room, visiting. Wiliam stated that his will drive him home when he is ready for discharge. CM will continue to follow. A: Wiliam is a 46 year old male admitted to [facility] on 04/05/22 for acute appendicitis. P: Wiliam will discharge home with no services when medically cleared by provider. He will follow up with his PCP, surgeon and plan of care as directed. He will be transported home by his via private vehicle when ready. CM will continue to follow.
[2022-04-08 15:31] VITALS: BP 128/80; PULSE 71; RESP 16; TEMP 37.4; O2SAT 99
[2022-04-08] MEDS: Enoxaparin 40 MG/0.4 ML SYR SC (21:54)
[2022-04-08 22:26] VITALS: BP 142/83; PULSE 83; RESP 14; TEMP 37.4; O2SAT 96
[2022-04-09] MEDS: PIPERACILLIN/TAZO 3.375 GM in Normal Saline 50 ML IVPB ×2 (00:29→05:49)
[2022-04-09 00:30] VITALS: BP 136/78; PULSE 89; RESP 18; TEMP 36.9; O2SAT 98
[2022-04-09] MEDS: ACETAMINOPHEN 1,000 MG/100 ML BTL 400 MG IVPB (02:00)
[2022-04-09] MEDS: Normal Saline Flush 10 ML SYR IVP (06:15)
--- NOTE | 2022-04-09 06:22 | W.PM.DS.N ---
Date of service: 04/09/22 Time of Service: 07:41 DS: Diagnosis Discharge Diagnosis (1) Perforated appendix: Status: Acute Asessment and Plan: Wiliam, you had perforated appendicitis, and were treated with a laparoscopic appendectomy. Your blood work normalized by the time of your discharge. We will continue some antibiotics for the next week to help minimize the chances of developing an infection after the fact. We look forward to seeing you in the office in the next 2 weeks for routine checkup Discharge Plan Disposition Patient Disposition: Home Condition: Good Discharge Details Reason For Visit: Acute Appendicitis Admit Date/Time: 04/05/22 19:59 Admit Provider: Vincent Howell Attending Provider: Vincent Howell Primary Care Provider: None,None Hospital Course Hospital Course: Abdominal pain. He underwent a CAT scan of the abdomen and pelvis that demonstrated appendicitis. He was brought to the operating room that night, and underwent appendectomy. At the time of the operation, there was evidence of perforation of the appendix. Peritoneal cavity was irrigated, and a drain was left in place. He was continued on broad-spectrum antibiotics, and over the subsequent days, his white blood cell count normalized, and he was afebrile and tolerating diet. Home Meds and New Rx's Prescriptions: New amoxicillin-pot clavulanate 875-125 mg tablet 1 tab PO Q12H Qty: 14 0RF Rx Instructions: Take 1 tablet by mouth 2 times each day until the prescription is complete. tramadol 50 mg tablet 50 mg PO Q8H PRN (Reason: pain) Qty: 6 0RF Rx Instructions: Take 1 tablet by mouth up to every 8 hours if needed for severe pain. Do not drive while using this medication. Take great care as this medication is known to be addictive. Continued calcium carbonate 500 mg calcium (1,250 mg) Tablet,Chewable 500 mg PO PRN PRN loratadine [Claritin] 10 mg Tablet 10 mg PO PRN PRN Discharge Instructions Instructions: Appendicitis (GEN), Laparoscopic Appendectomy (GEN) Additional Instructions: You will be set up with a 2 week post-op Follow up at the general surgery office. Stand Alone Forms: Nursing Discharge Form Referrals: Yu Durand DO [OSTEOPATHIC DOCTOR] - 04/19/22 9:30 am Activity:: No heavy lifting Equipment/Supplies:: No Equipment Needed Diet:: As Tolerated Discharge Orders Discharge Orders: Discharge Order (Routine); Ordered 04/09/22 Ordered By: Neftali Murcia DS: Summary Time Spent with Patient providing and/or coordinating discharge services: Less than 30 minutes Status at Discharge Functional status at discharge: independent ambulation Overall status at discharge: patient is back to baseline Mental Status: mental status grossly normal Speech and Movement: speech and movement normal Mood: congruent mood Affect: normal affect Exam Const General: cooperative, healthy appearing and comfortable Orientation: alert and oriented x3 Resp Effort & Inspection: normal respiratory effort, no audible wheezes and no cough GI Inspection: normal to inspection Palpation: soft, no guarding and nontender Other: MARI drain was removed. Non-adherent pad and tegaderm dressing was applied. This can be removed in 48-72 hours. Psych Mental Status: mental status grossly normal Speech and Movement: speech and movement normal Mood: congruent mood Affect: normal affect DS: Data Vitals/I&O Vitals and I&O: Vital Signs Temperature 98.4 F 04/09/22 00:30 Temperature Source Tympanic 04/08/22 22:26 Pulse 89 04/09/22 00:30 Pulse Rhythm Regular 04/08/22 17:30 Respiratory Rate 18 04/09/22 00:30 Respiratory Effort Non-Labored 04/08/22 17:30 Respiratory Depth Normal 04/08/22 17:30 Respiratory Pattern Normal 04/08/22 17:30 Blood Pressure 136/78 04/09/22 00:30 Pulse Oximetry 98 04/09/22 00:30 Respiratory End-tidal CO2 38 04/05/22 20:19 Oxygen Delivery Method Room Air 04/09/22 00:30 Oxygen Flow Rate 0 04/09/22 00:30 Pain Level 0 04/08/22 22:26 Comment 04/07/22 12:58 Intake & Output 04/08/22 04/08/22 04/09/22 11:59 23:59 11:59 Intake Total 2247.917 / 2562.917 315 / 2562.917 50 / 50 Output Total 325 / 335 10 / 335 Balance 1922.917 / 2227.917 305 / 2227.917 50 / 50 Intake: IV 2247.917 / 2547.917 300 / 2547.917 50 / 50 Oral 15 / 15 Output: Drainage Left Mid Abdomen Urine 325 / 325 Other: Urine Color Yellow Urine Appearance Clear Comment pT stated that he voided. pT uses the bathroom indpendently. 1 unkown void at this time. Voiding Methods Toilet Toilet Data Completed and Pending Labs on day of discharge: Labs from last 24 hours 04/08/22 04/08/22 06:12 06:12 WBC 9.90 RBC 4.92 Hgb 13.6 Hct 40.8 MCV 83 MCH 27.6 MCHC 33.3 RDW 12.3 Plt Count 215 MPV 10.9 Immature Gran % 0.3 Neutrophils % 75.7 Lymphocytes % 12.9 Monocytes % 9.1 Eosinophils % 1.7 Basophils % 0.3 Nucleated RBC % 0.0 Absolute Neutrophils 7.49 H Absolute Lymphocytes 1.28 Absolute Monocytes 0.90 H Absolute Eosinophils 0.17 Absolute Basophils 0.03 Sodium 138 Potassium 3.6 Chloride 103 Carbon Dioxide 26.2 Anion Gap 8.8 BUN 14 Creatinine 1.2 Est GFR (CKD-EPI 2020) 76.48 Glucose 103 Calcium 8.8 PFSH All Active Problems Perforated appendix (Acute) Appendicitis (Acute) Social History Smoking/Tobacco Use Status: Never Smoking risk assessment performed?: Yes Drug use: Occasionally Substance use type: marijuana Do you feel safe at home: Yes Time Spent with Patient Time Spent with Patient: <45 minutes Time was spent: ordering medications,tests, procedures and care coordination
[2022-04-09 07:26] VITALS: BP 139/85; PULSE 85; RESP 17; TEMP 36.8; O2SAT 98
--- NOTE | 2022-04-09 11:11 | PDOC.CMDIS ---
- If Service Date Differs Date of service: 04/09/22 Time of Service: 11:11 LACE Index Scoring Tool - Questions: Length of Stay (in days): 4 - 6 Acuity (Admit via E.D.?): Yes E.D. Visits: 1 - Answers: Total Score: 8 Risk of Readmission: Low Risk Care Management Discharge Reason for Hospitalization: Acute appendicitis. Discharge Plan: Wiliam returned home today with no new services. His will drive him home via private vehicle. He will follow up with his PCP and discharge plan of care. Patient/Family Education Needs: Review discharge instructions and limitations, discussion of self care needs including ask me three.
== END 2022-04-09 10:06 | disposition home or self-care (01) | DRG 340 ==
LOC: ER 16:37 → DSU 20:12 → MS 20:27
PROVIDERS: Registered Nurse Emergency; Admitting Provider Student in an Organized Health Care Education/Training Program; Emergency Provider Physician Assistant; Visit Provider Student in an Organized Health Care Education/Training Program
PROC: 0DTJ4ZZ Resection of Appendix, Percutaneous Endoscopic Approach (ICD-10-PCS; CPT 44970; principal; 2022-04-05 17:40)
DX: K35.32 Acute appendicitis with perforation, localized peritonitis, and gangrene, without abscess (principal); Z20.822 Contact with and (suspected) exposure to COVID-19; F12.90 Cannabis use, unspecified, uncomplicated
CPT/HCPCS: 44970; 36415; 80048; 80053; 83690; 87635; 96361; 96365; 96375; 96376; 99285; J1650; 74177; 81003; 81015; 83735; 85025; 88304; J0131; J1100; J1644; J1885; J2270; J2405; J2543; J2704; J3490

== ENCOUNTER 2022-10-23 18:00 | Outpatient (REF) | payer OTHER, SELFPAY ==
[2022-10-23 19:50] LABS: Epithelial Cells Negative HPF (Negative); RBC 0-2 HPF (0-2); WBC Negative HPF (0-5)
[2022-10-23 19:51] LABS: Bacteria Negative HPF (Negative); C & S Indicated? No; Crystals Negative HPF (Negative); Mucus Trace (Negative)
== END 2022-10-23 18:01 | disposition home or self-care (01) ==
LOC: LBO 18:00
PROVIDERS: Visit Provider Nurse Practitioner Family
DX: R31.29 Other microscopic hematuria (principal)
CPT/HCPCS: 81015